=== PATIENT | female | born 1990 | race Caucasian/White ===

== ENCOUNTER → 2017-06-08 | Day surgery (SDC) | payer OTHER ==
[~2017-06-08] VITALS: Ht 160 cm; Wt 65.8 kg
[~2017-06-08] MED LIST: ACETAMINOPHEN 650 MG SUPP As Ordered ONE; BUPIVACAINE HCL 0.5% 30 ML VIAL As Ordered ONE; DOXY-278 PO; GLYCOPYRROLATE INJ 0.2 MG/ML 2 ML VIAL As Ordered ONE; HYDROmorphone HCL 1 MG/ML SYRINGE (J1170) IV PRN; HYDROmorphone HCL 2 MG/ML 1ML VIAL (J1170) As Ordered ONE; KETOROLAC 60 MG/2 ML VIAL (J1885) As Ordered ONE; LACTATED RINGER'S 1000 ML IV ONE; LR 1,000 ML IV ONE; LR 1,000 ML IV SCH; METOCLOPRAMIDE INJ 10MG/2ML VIAL (J2765) As Ordered ONE; MIDAZOLAM INJ 2 MG/2 ML VIAL (J2250) As Ordered ONE; NEOSTIGMINE 1MG/ML 5 ML SYRINGE (J2710) As Ordered ONE; NEXP1IMP SC; ONDANSETRON 4MG/2ML VIAL (J2405) As Ordered ONE; ONDANSETRON 4MG/2ML VIAL (J2405) IV PRN; PROPOFOL 500 MG/50 ML VIAL As Ordered ONE; PROZ40CA PO; ROCURONIUM BROMIDE 50 MG/5 ML VIAL/SYRINGE As Ordered ONE; SING10TA32 PO; ZYRT10TA2 PO; dexameTHASONE 4 MG/ML 1ML VIAL (J1100) As Ordered ONE; fentaNYL 100 MCG/2 ML INJECTION (J3010) As Ordered ONE; fentaNYL 100 MCG/2 ML INJECTION (J3010) IV PRN; oxyCODONE 5MG TAB PO PRN
[2017-06-08 09:23] LABS: MEAN CORPUSCULAR HEMOGLOBIN 27.4 pg (27.0-33.0); MEAN CORPUSCULAR HGB CONC 33.2 g/dl (32.0-36.5); MEAN CORPUSCULAR VOLUME 82.4 fl (80.0-96.0); RED CELL DISTRIBUTION WIDTH 12.4 % (11.5-14.5); WHITE BLOOD COUNT 6.3 K/mm3 (4.0-10.0)
[2017-06-08 09:52] LABS: ANION GAP 7 MEQ/L (8-16); BLOOD UREA NITROGEN 10 MG/DL (7-18); CALCIUM LEVEL 8.7 MG/DL (8.5-10.1); CARBON DIOXIDE LEVEL 26 MEQ/L (21-32); CHLORIDE LEVEL 108 MEQ/L (98-107); CREATININE FOR GFR 0.69 MG/DL (0.55-1.02); GLOMERULAR FILTRATION RATE > 60.0 (>60); GLUCOSE, FASTING 93 MG/DL (70-105); HCG, SERUM QUANTITATIVE < 1.0 MIU/ML; POTASSIUM SERUM 3.9 MEQ/L (3.5-5.1); SODIUM LEVEL 141 MEQ/L (136-145)
[2017-06-08 14:15] VITALS: BP 115/63
--- NOTE | 2017-06-21 21:42 | RO ---
DATE OF PROCEDURE: 06/08/2017 PREOPERATIVE DIAGNOSIS: Satisfied parity, impacted Nexplanon left arm. POSTOPERATIVE DIAGNOSIS: Satisfied parity, impacted Nexplanon. OPERATION PROPOSED: Laparoscopic bilateral tubal ligation by Filshie clip and excision of Nexplanon left arm. OPERATION PERFORMED: Laparoscopic bilateral tubal ligation by Filshie clip, excision of Nexplanon left arm. SURGEON: Dr. Bennett Gallegos DENTAL EQUIPMENT REPAIRER: Sha ANESTHESIA: General plus local anesthetic for intraperitoneal procedures and local anesthetic for removal of Nexplanon. ESTIMATED BLOOD LOSS: Less than 20 mL. DESCRIPTION OF PROCEDURE: Under adequate anesthesia, after time-out, prepped and draped in lithotomy position, acetaminophen suppository 1300 mg per rectum, sequentials on board. A Mead catheter in the bladder draining clear urine. Weighted speculum in vagina, a single-tooth tenaculum on the anterior lip of the cervix. Uterine elevator was placed endocervical canal. Reprepping and draping, direct entry into the abdomen. No evidence of perforation, hemorrhage or bleeding with VisiView. CO2 gas was inflating the abdomen up to 14 mm pressure. An 8 mm port was placed on the left side, panoramic review - right upper quadrant was normal, right round ligament was normal, right tube and ovary are normal. Anterior aspect of the bladder was clear. Posterior cul-de-sac was clear. Left ovary and tube were normal. Left upper quadrant was normal. With that, we elevated the uterus. We were able to apply a Filshie clip on the right mid section of the tube. Good hemostasis and secure to was noted. We did a similar procedure on the left tube. With that done, instrument and pad count correct, we then put some local anesthetic, 2 mL Marcaine 0.25% through a spinal needle at the cornual end of each tube for reducing pain. Good hemostasis was noted and no active bleeding. We left 250 mL of normal saline in the abdomen, deflated to 4 mm of pressure, removed to left 8 mm port, removed the mainstem port, put subcuticular stitches in both areas, Marcaine 0.25% 2 mL into each incisional site. We removed the Mead catheter and removed the uterine elevator and the single-tooth tenaculum. The left arm was then extended. It was prepped. We could palpate the Nexplanon, but it was more difficult because it was deeply embedded. We put a small amount of local anesthetic in the area, made an incision using a straight mosquito and pushing down on the Nexplanon, we were eventually able to grasp the tip and pull it out. It was sent to pathology under separate cover. There was no active bleeding. A subcuticular mattress stitch was placed in the area, good hemostasis and a Band-Aid was placed, and we will check this lady's strength and neurological component to her left arm in recovery. The patient was then sent to recovery in good condition. Copy To: Darline Kahn OB
== END | disposition home or self-care (01) ==
LOC: M SDC 08:30
PROVIDERS: ATTEND Obstetrics & Gynecology
DX: Z30.2 Encounter for sterilization (principal); Z30.46 Encounter for surveillance of implantable subdermal contraceptive; D64.9 Anemia, unspecified; K59.00 Constipation, unspecified; Z79.899 Other long term (current) drug therapy
CPT/HCPCS: 11976; 36415; 58671; 80048; 84702; 85027; 88300; J1100; J1170; J1885; J2250; J2405; J2710; J2765; J3010

== ENCOUNTER → 2017-07-22 | Outpatient (CLI) | payer OTHER ==
[~2017-07-22] MED LIST changes: -ACETAMINOPHEN 650 MG SUPP As Ordered ONE; -BUPIVACAINE HCL 0.5% 30 ML VIAL As Ordered ONE; -GLYCOPYRROLATE INJ 0.2 MG/ML 2 ML VIAL As Ordered ONE; -HYDROmorphone HCL 1 MG/ML SYRINGE (J1170) IV PRN; -HYDROmorphone HCL 2 MG/ML 1ML VIAL (J1170) As Ordered ONE; -KETOROLAC 60 MG/2 ML VIAL (J1885) As Ordered ONE; -LACTATED RINGER'S 1000 ML IV ONE; -LR 1,000 ML IV ONE; -LR 1,000 ML IV SCH; -METOCLOPRAMIDE INJ 10MG/2ML VIAL (J2765) As Ordered ONE; -MIDAZOLAM INJ 2 MG/2 ML VIAL (J2250) As Ordered ONE; -NEOSTIGMINE 1MG/ML 5 ML SYRINGE (J2710) As Ordered ONE; -ONDANSETRON 4MG/2ML VIAL (J2405) As Ordered ONE; -ONDANSETRON 4MG/2ML VIAL (J2405) IV PRN; -PROPOFOL 500 MG/50 ML VIAL As Ordered ONE; -ROCURONIUM BROMIDE 50 MG/5 ML VIAL/SYRINGE As Ordered ONE; -dexameTHASONE 4 MG/ML 1ML VIAL (J1100) As Ordered ONE; -fentaNYL 100 MCG/2 ML INJECTION (J3010) As Ordered ONE; -fentaNYL 100 MCG/2 ML INJECTION (J3010) IV PRN; -oxyCODONE 5MG TAB PO PRN
--- NOTE | 2017-07-22 18:22 | REP ---
Clinical: Trauma. Technique: AP, lateral, bilateral oblique views right third digit . Findings: The osseous structures and joint spaces are intact and normal. There is no evidence for acute fracture or dislocation. Surrounding soft tissues are unremarkable. No subcutaneous emphysema or radiodense foreign body. Impression: No acute fracture or dislocation. Signed by Law Hernandez MD 07/22/2017 06:13 P
== END ==
LOC: M WUC 17:38
PROVIDERS: ATTEND Physician Assistant
DX: S60.031A Contusion of right middle finger without damage to nail, initial encounter (principal); X58.XXXA Exposure to other specified factors, initial encounter; Y92.9 Unspecified place or not applicable; Y93.9 Activity, unspecified; Y99.9 Unspecified external cause status